=== PATIENT | male | born 1945 | race Caucasian/White ===

== ENCOUNTER 2017-03-17 19:15 | Emergency (ER) | payer MEDICARE, BC ==
[2017-03-17] MEDS: ALBUTEROL/IPRATROPIUM 1 VIAL SOL INH ONE (19:32)
[2017-03-17] MEDS ORDERED: SOLUMEDROL 125 MG/2 ML 125 MG/2 ML PDS ONE (19:33)
[2017-03-17] MEDS ORDERED: ALBUTEROL/IPRATROPIUM 1 VIAL SOL ONE (19:34)
[2017-03-17 19:44] VITALS: TEMP 99.2
[2017-03-17] MEDS: SOLUMEDROL 125 MG/2 ML 125 MG/2 ML PDS IV ONE (19:50)
[2017-03-17] MEDS ORDERED: MORPHINE SULFATE 10 MG/ML SOL ONE (20:20)
[2017-03-17] MEDS: MORPHINE SULFATE 10 MG/ML SOL IV ONE (20:23)
[2017-03-17] MEDS: SODIUM CHLORIDE 0.9% FLUSH 10 ML SOL IV PRN (20:23)
[2017-03-17 21:02] VITALS: BP 123/64; PULSE 82; RESP 18; O2SAT 90
== END 2017-03-17 20:47 | disposition home or self-care (01) | DRG 192 ==
LOC: ED 19:15
DX: J44.1 Chronic obstructive pulmonary disease with (acute) exacerbation (principal); R91.8 Other nonspecific abnormal finding of lung field
CPT/HCPCS: 71010; 96374; 96375; 99284; 99285; J2270; J2930; J7620

== ENCOUNTER 2018-01-27 10:33 | Inpatient (IN) | payer MEDICARE, BC ==
[2018-01-27] MEDS ORDERED: LEVOFLOXACIN 500 MG (PREMIX) 500 MG/100 ML SOL IV ONE (10:39)
[2018-01-27] MEDS ORDERED: VANCOMYCIN HCL 500 MG PDS 1,000 MG in SODIUM CHLORIDE 0.9% 250 ML 250 ML IV ONE (10:39)
[2018-01-27 11:16] LABS: BASOPHILS % (AUTO) 2 % (0-3); EOSINOPHILS % (AUTO) 0 % (0-9); HEMATOCRIT 42 % (39-53); HEMOGLOBIN 13.6 gm/dl (13.5-17.7); LYMPHOCYTES % (AUTO) 8.78 % (10-50); MEAN CORPUSCULAR HEMOGLOBIN 28.5 pg (27.0-32.0); MEAN CORPUSCULAR HGB CONC 32.6 gm/dl (32.0-36.0); MEAN CORPUSCULAR VOLUME 87 fL (80-100); MONOCYTES % (AUTO) 6.1 % (0-12); NEUTROPHILS % (AUTO) 83.2 % (37-80)
[2018-01-27] MEDS: SODIUM CHLORIDE 0.9% FLUSH 10 ML SOL IV SCH ×3 (11:23→18:01)
[2018-01-27 11:40] LABS: BILIRUBIN,TOTAL 0.4 mg/dl (0.2-1.0); CALCIUM 8.7 mg/dl (8.5-10.1); CARBON DIOXIDE 33.8 mEq/L (21-32); CREATININE 1.01 mg/dl (0.80-1.30); CRP INFLAMMATORY 15.47 mg/dl (0.00-0.33); POTASSIUM 4.4 mMol/L (3.5-5.1); TOTAL PROTEIN 7.4 gm/dl (6.4-8.2)
[2018-01-27] MEDS ORDERED: SODIUM CHLORIDE 0.9% 250 ML 250 ML IV ONE (11:43)
[2018-01-27] MEDS ORDERED: VANCOMYCIN HYDROCHLORIDE 500 MG PDS IV ONE (11:43)
[2018-01-27] MEDS: MORPHINE SULFATE 10 MG/5 ML SOL PO PRN ×3 (12:57→21:12)
[2018-01-27] MEDS ORDERED: FUROSEMIDE 20 MG TAB PO PRN (14:08)
[2018-01-27] MEDS ORDERED: PROCHLORPERAZINE MALEATE 5 MG PO PRN (14:08)
[2018-01-27] MEDS ORDERED: POTASSIUM CHLORIDE 10 MEQ TER PO PRN (14:08)
[2018-01-27] MEDS ORDERED: DOCUSATE SODIUM 100 MG SGL PO PRN (14:08)
[2018-01-27] MEDS ORDERED: ALUMINUM/MAGNESIUM 30 ML SUS PO PRN (14:08)
[2018-01-27] MEDS: LORAZEPAM 0.5 MG TAB PO PRN ×2 (14:55→21:12)
[2018-01-27] MEDS: ATENOLOL 25 MG TAB PO SCH (14:55)
[2018-01-27] MEDS: ALBUTEROL NEB SOL 2.5MG/3ML 1 VIAL SOL NEB PRN (16:18)
[2018-01-27] MEDS: ALBUTEROL/IPRATROPIUM 1 VIAL SOL INH SCH ×2 (16:57→21:10)
[2018-01-27] MEDS: ASPIRIN 81 MG CHEWABLE CTB PO SCH (18:01)
[2018-01-27] MEDS: NICOTINE 21 MG PATCH TD SCH (18:02)
[2018-01-27] MEDS: NICOTINE 7 MG PATCH TD SCH (18:02)
[2018-01-27] MEDS ORDERED: VANCOMYCIN HCL 500 MG PDS 1,000 MG in SODIUM CHLORIDE 0.9% 250 ML 250 ML IV SCH (21:00)
[2018-01-27] MEDS: BUDESONIDE 0.5 MG/2 ML AMPUL.NEB INH SCH (21:10)
[2018-01-27] MEDS: POLYETHYLENE GLYCOL 17 GM/1 TBS PDS PO SCH (21:11)
[2018-01-28] MEDS ORDERED: SODIUM CHLORIDE 0.9% 250 ML 250 ML IV ONE ×2 (00:28→13:15)
[2018-01-28] MEDS ORDERED: VANCOMYCIN HYDROCHLORIDE 500 MG PDS IV ONE ×2 (00:28→13:15)
[2018-01-28] MEDS: VANCOMYCIN HCL 500 MG PDS 1,000 MG in SODIUM CHLORIDE 0.9% 250 ML 250 ML IV SCH ×2 (00:38→13:47)
[2018-01-28] MEDS: SODIUM CHLORIDE 0.9% FLUSH 10 ML SOL IV SCH ×5 (00:38→21:23)
[2018-01-28] MEDS: LORAZEPAM 0.5 MG TAB PO PRN ×4 (04:03→20:11)
[2018-01-28] MEDS: MORPHINE SULFATE 10 MG/5 ML SOL PO PRN ×4 (04:03→20:11)
[2018-01-28] MEDS: ALBUTEROL NEB SOL 2.5MG/3ML 1 VIAL SOL NEB PRN (04:13)
[2018-01-28 08:29] LABS: BASOPHILS % (AUTO) 1 % (0-3); EOSINOPHILS % (AUTO) 2 % (0-9); HEMATOCRIT 38 % (39-53); HEMOGLOBIN 12.1 gm/dl (13.5-17.7); LYMPHOCYTES % (AUTO) 13.2 % (10-50); MEAN CORPUSCULAR HEMOGLOBIN 28.5 pg (27.0-32.0); MEAN CORPUSCULAR HGB CONC 32.3 gm/dl (32.0-36.0); MEAN CORPUSCULAR VOLUME 88 fL (80-100); NEUTROPHILS % (AUTO) 75.2 % (37-80)
[2018-01-28 08:38] LABS: CALCIUM 8.1 mg/dl (8.5-10.1); CREATININE 0.92 mg/dl (0.80-1.30); POTASSIUM 3.8 mMol/L (3.5-5.1)
[2018-01-28 08:47] LABS: CARBON DIOXIDE 33.3 mEq/L (21-32)
[2018-01-28] MEDS: PANTOPRAZOLE SODIUM 40 MG ECT PO SCH (09:06)
[2018-01-28] MEDS: ENOXAPARIN 40 MG SOL SC SCH (09:06)
[2018-01-28] MEDS: ALBUTEROL/IPRATROPIUM 1 VIAL SOL INH SCH ×4 (09:07→21:15)
[2018-01-28] MEDS: BUDESONIDE 0.5 MG/2 ML AMPUL.NEB INH SCH ×2 (09:42→21:15)
[2018-01-28] MEDS ORDERED: LEVOFLOXACIN 500 MG (PREMIX) 500 MG/100 ML SOL IV SCH (11:30)
[2018-01-28] MEDS: LEVOFLOXACIN 500 MG TAB PO SCH (11:45)
[2018-01-28] MEDS ORDERED: PROCHLORPERAZINE MALEATE 5 MG TAB PO PRN (12:30)
[2018-01-28] MEDS: ATENOLOL 25 MG TAB PO SCH (13:08)
[2018-01-28] MEDS: ASPIRIN 81 MG CHEWABLE CTB PO SCH (17:07)
[2018-01-28] MEDS: NICOTINE 7 MG PATCH TD SCH (17:07)
[2018-01-28] MEDS: NICOTINE 21 MG PATCH TD SCH (17:07)
[2018-01-28] MEDS: POLYETHYLENE GLYCOL 17 GM/1 TBS PDS PO SCH (21:15)
[2018-01-29] MEDS ORDERED: VANCOMYCIN HYDROCHLORIDE 500 MG PDS IV ONE (00:27)
[2018-01-29] MEDS ORDERED: SODIUM CHLORIDE 0.9% 250 ML 250 ML IV ONE (00:27)
[2018-01-29] MEDS: VANCOMYCIN HCL 500 MG PDS 1,000 MG in SODIUM CHLORIDE 0.9% 250 ML 250 ML IV SCH (00:48)
[2018-01-29] MEDS: SODIUM CHLORIDE 0.9% FLUSH 10 ML SOL IV SCH ×3 (00:49→11:42)
[2018-01-29] MEDS: LORAZEPAM 0.5 MG TAB PO PRN ×2 (02:32→11:35)
[2018-01-29] MEDS: MORPHINE SULFATE 10 MG/5 ML SOL PO PRN (02:32)
[2018-01-29] MEDS: ALBUTEROL NEB SOL 2.5MG/3ML 1 VIAL SOL NEB PRN (06:33)
[2018-01-29 06:34] VITALS: RESP 20
[2018-01-29] MEDS: LEVOFLOXACIN 500 MG TAB PO SCH (08:46)
[2018-01-29] MEDS: PANTOPRAZOLE SODIUM 40 MG ECT PO SCH (08:46)
[2018-01-29] MEDS: ENOXAPARIN 40 MG SOL SC SCH (08:47)
[2018-01-29] MEDS: BUDESONIDE 0.5 MG/2 ML AMPUL.NEB INH SCH (08:52)
[2018-01-29] MEDS ORDERED: DOXYCYCLINE 100 MG TAB PO SCH (09:00)
[2018-01-29 09:45] VITALS: BP 124/70; TEMP 98.3
[2018-01-29] MEDS: ALBUTEROL/IPRATROPIUM 1 VIAL SOL INH SCH (09:46)
[2018-01-29 09:56] VITALS: PULSE 82; O2SAT 98
[2018-01-29] MEDS ORDERED: PNEUMOCOCCAL VACCINE 0.5 ML SOL IM ONE ×2 (10:31→11:17)
[2018-01-29] MEDS ORDERED: MORPHINE SULFATE 10 MG/ML SOL ONE (11:32)
[2018-01-29] MEDS ORDERED: LORAZEPAM 0.5 MG TAB ONE (11:32)
== END 2018-01-29 11:40 | disposition home or self-care (01) | DRG 603 ==
LOC: ACUTE CARE 10:40
PROVIDERS: ADMIT Family Medicine; ATTEND Family Medicine
PROC: 0HBNXZZ Excision of Left Foot Skin, External Approach (ICD-10-PCS; principal; 2018-01-29)
PROC: 0HBMXZZ Excision of Right Foot Skin, External Approach (ICD-10-PCS; 2018-01-29)
DX: L03.115 Cellulitis of right lower limb (principal); L89.629 Pressure ulcer of left heel, unspecified stage; J44.9 Chronic obstructive pulmonary disease, unspecified; L97.419 Non-pressure chronic ulcer of right heel and midfoot with unspecified severity; L84 Corns and callosities
CPT/HCPCS: 36415; 80048; 80053; 85025; 87040; 87077; 87186; 87205; 90732; 94640; J1650; J1956; J2270; J3370; J7613; A6232; A9270-GY; G0008